=== PATIENT | female | born 1935 | race Caucasian/White ===

== ENCOUNTER → 2020-07-10 | Outpatient (CLI) | payer BC, MEDICARE | LOC: US 06-19 11:00 → ECHO 06-19 12:00 → EDBD 13:43 | DX: I63.9 Cerebral infarction, unspecified (principal); R09.89 Other specified symptoms and signs involving the circulatory and respiratory systems; I65.23 Occlusion and stenosis of bilateral carotid arteries; I08.3 Combined rheumatic disorders of mitral, aortic and tricuspid valves; I27.20 Pulmonary hypertension, unspecified | CPT/HCPCS: ECHO; 70551; 93306; 93880 ==

== ENCOUNTER → 2020-07-18 | Outpatient (CLI) | payer MEDICARE ==
[2020-07-18 18:00] LABS: HEMOGLOBIN 6.4 gm/dl (12.3-15.3)
== END ==
LOC: LAB 17:20 → EDBD 17:20
PROVIDERS: Internal Medicine Hematology & Oncology
DX: D64.9 Anemia, unspecified (principal)
CPT/HCPCS: 85014; 85018; 86850; 86900; 86901; 86920; P9016

== ENCOUNTER → 2020-07-19 | Outpatient (CLI) | payer MEDICARE, OTHER ==
[~2020-07-19] VITALS: Ht 152.4 cm; Wt 54.9 kg
== END ==
LOC: OPSV 07:37 → EDBD 09:07
DX: D64.9 Anemia, unspecified (principal)
CPT/HCPCS: 36430; 96374; 96375; J1940; J7050; P9016

== ENCOUNTER 2021-04-30 15:48 | Emergency (ER) | payer MEDICARE ==
[2021-04-30 16:38] LABS: HEMOGLOBIN 8.2 gm/dl (12.3-15.3); RED BLOOD COUNT 3.2 M/UL (4.00-5.10); WHITE BLOOD COUNT 8.8 K/UL (4.5-11.0)
== END 2021-04-30 18:35 | disposition home or self-care (01) ==
LOC: ER1 15:48
PROVIDERS: Emergency Medicine
DX: D64.9 Anemia, unspecified (principal); I25.10 Atherosclerotic heart disease of native coronary artery without angina pectoris; I10 Essential (primary) hypertension; E11.9 Type 2 diabetes mellitus without complications; Z88.5 Allergy status to narcotic agent
CPT/HCPCS: 80053; 85025; 86850; 86900; 86901; 99284

== ENCOUNTER 2021-06-01 16:59 | Emergency (ER) | payer MEDICARE ==
[~2021-06-01] VITALS: Ht 157.5 cm; Wt 57.2 kg
[2021-06-01 18:35] LABS: HEMOGLOBIN 7.4 gm/dl (12.3-15.3); RED BLOOD COUNT 3.35 M/UL (4.00-5.10); WHITE BLOOD COUNT 7.3 K/UL (4.5-11.0)
[2021-06-01 18:56] LABS: BUN/CREATININE RATIO 25 (0-10)
== END 2021-06-01 21:58 | disposition home or self-care (01) ==
LOC: ER1 16:59
PROVIDERS: Nurse Practitioner
DX: U07.1 COVID-19 (principal); Z23 Encounter for immunization; E11.9 Type 2 diabetes mellitus without complications; D64.9 Anemia, unspecified; F03.90 Unspecified dementia, unspecified severity, without behavioral disturbance, psychotic disturbance, mood disturbance, and anxiety; Z86.73 Personal history of transient ischemic attack (TIA), and cerebral infarction without residual deficits; Z88.5 Allergy status to narcotic agent
CPT/HCPCS: 36600; 71045; 80053; 81001; 82550; 82553; 82803; 83874; 84484; 85025; 86140; 93005; 99284; M0243; U0002